=== PATIENT | female | born 2000 | race Caucasian/White ===

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

== ENCOUNTER 2018-12-26 12:38 | Emergency (ER) | payer BC ==
--- NOTE | 2018-12-26 14:12 | UC ---
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 She also complains of a mild sore neck. - History of Current Complaint Chief Complaint: UCGeneralIllness Stated Complaint: HEADACHE, SORE THROAT Time Seen by Provider: 12/26/18 14:01 Hx Obtained From: Patient Hx Last Menstrual Period: 12/03/18 ?: No Onset/Duration: Gradual Onset Severity: Mild Pain Intensity: 6 Cough: None - Epiglottits Risk Factors Epiglottis Risk Factors: Negative - Allergies/Home Medications Allergies/Adverse Reactions: Allergies Allergy/AdvReac Type Severity Reaction Status Date / Time No Known Allergies Allergy Verified 10/20/17 21:00 PMH/Surg Hx/FS Hx/Imm Hx Previously Healthy: Yes - Surgical History Surgical History: Yes Surgery Procedure, Year, and Place: T&A. EAR TUBES B/L - Family History Known Family History: Positive: None - Pt denies FMHX - Social History Occupation: Student Lives: Dormitory/Roommates Alcohol Use: Weekly Substance Use Type: None Smoking Status (MU): Never Smoked Tobacco - Immunization History Vaccination Up to Date: Yes Review of Systems All Other Systems Reviewed And Are Negative: Yes ENT: Positive: Sore Throat, Other - Mild right-sided neck soreness Is Patient Immunocompromised?: No Physical Exam Triage Information Reviewed: Yes Appearance: Well-Appearing, No Pain Distress, Well-Nourished Vital Signs: Initial Vital Signs Temp 97.3 F 12/26/18 13:39 Pulse 56 12/26/18 13:39 Resp 20 12/26/18 13:39 BP 109/59 12/26/18 13:39 Pulse Ox 100 12/26/18 13:39 ENT: Positive: Pharynx normal, TMs normal, Uvula midline. Negative: Tonsillar swelling, Tonsillar exudate, Trismus, Muffled voice Neck exam: Normal Neck: Positive: Supple, Nontender, No Lymphadenopathy Respiratory: Positive: Lungs clear, Normal breath sounds, No respiratory distress, No accessory muscle use Cardiovascular: Positive: RRR, No Murmur, Pulses Normal, Brisk Capillary Refill Abdomen Description: Positive: Nontender, No Organomegaly, Soft Bowel Sounds: Positive: Present Musculoskeletal: Positive: Strength Intact, ROM Intact Neurological: Positive: Alert, Muscle Tone Normal Skin Exam: Normal Throat Pain/Nasal Course/Dx - Course Course Of Treatment: Patient's physical exam is fairly benign. At this point in time I believe this is a viral sore throat. She is to do warm salt water gargles, throat lozenges follow-up if no improvement near the end of the week at the [facility]. - Differential Dx/Diagnosis Provider Diagnosis: Pharyngitis Discharge - Sign-Out/Discharge Documenting (check all that apply): Patient Departure All imaging exams completed and their final reports reviewed: No Studies - Discharge Plan Condition: Good Disposition: HOME Patient Education Materials: Pharyngitis (ED) Forms: *School Release Referrals: Non Staff,Doctor [Medical Doctor] - PRISCILLA PURI [[facility], APPLICATION, OTHER] - Additional Instructions: Increase fluids, warm saltwater gargles, throat lozenges. Follow up at the [facility] [place] by Tuesday if no improvement. - Billing Disposition and Condition Condition: GOOD Disposition: Home - Attestation Statements Provider Attestation: I was available for consult. This patient was seen by the JORDANA. The patient was not presented to, seen by, or examined by me. -Cuong
== END 2018-12-26 14:13 | disposition home or self-care (01) ==
LOC: UCCORT 12:38
DX: J02.9 Acute pharyngitis, unspecified (principal)
CPT/HCPCS: 99211; G0463